=== PATIENT | male | born 1990 | race Caucasian/White ===

== ENCOUNTER 2023-09-15 14:42 | Emergency (ER) | payer OTHER ==
[2023-09-15 15:29] VITALS: BP 157/95; O2SAT 100
--- NOTE | 2023-09-15 16:13 | XRAY Report ---
PROCEDURE: Shoulder 3 View LT INDICATIONS: injury TECHNIQUE: 3 views of the shoulder were acquired. COMPARISON: None. FINDINGS: Bones: Mid clavicle shaft fracture, with 1.6 cm superior subluxation of the proximal fragment. Soft tissues: No suspicious soft tissue calcifications. The visualized lungs are within normal limi ts. IMPRESSION: Displaced, comminuted mid clavicle shaft fracture. Reviewed by: Panda Lowe MD on 09/15/2023 4:12 PM PST Approved by: Panda Lowe MD on 09/15/2023 4:12 PM PST Station ID: [id number]
--- NOTE | 2023-09-15 16:21 | ED Physician Documentation ---
History of Present Illness - Stated complaint Stated Complaint: COLLAR BONE INJ - Chief complaint Chief Complaint: Trauma Ext - History obtained from History obtained from: Patient - History of Present Illness Timing: Yesterday Pain level max: 7 Pain level now: 7 - Additonal information Additional information: 32-year-old male, [employer] was in [place] yesterday, snowboarding when he fell and sustained a clavicle fracture. He was seen in an emergency department in [place], told he may have a coracoid process fracture on his scapula and that he should have a CT scan or MRI when he returned back to the [facility] and should be referred to orthopedics. Patient was prescribed Percocet for pain. No head, neck, back pain. No rib pain. No difficulty breathing. No cough. No congestion. No head injury. No loss of consciousness. No numbness or tingling in the left arm. Review of Systems Constitutional: denies: Fever, Chills Respiratory: denies: Cough GI: denies: Vomiting, Diarrhea Skin: denies: Rash Musculoskeletal: denies: Neck pain, Back pain Neurologic: denies: Headache PD PAST MEDICAL HISTORY - Past Medical History Past Medical History: No Cardiovascular: None Respiratory: None Neuro: None Endocrine/Autoimmune: None GI: None : None HEENT: None Psych: None Musculoskeletal: None Derm: None - Past Surgical History Past Surgical History: Yes - Present Medications Home Medications: Ambulatory Orders Medication Instructions Recorded Confirmed Oxycodone HCl/Acetaminophen 1 - 2 each PO Q6H PRN #14 tablet 09/15/23 [Percocet 5-325 mg Tablet] MDD 6 tabs - Allergies Allergies/Adverse Reactions: Allergies Allergy/AdvReac Type Severity Reaction Status Date / Time No Known Drug Allergies Allergy Verified 09/15/23 15:18 - Social History Does the pt smoke?: No Smoking Status: Never smoker Does the pt drink ETOH?: Yes Does the pt have substance abuse?: No - Immunizations Immunizations are current?: Yes PD ED PE NORMAL - Vitals Vital signs reviewed: Yes - General General: Alert and oriented X 3 - HEENT HEENT: Atraumatic, Moist mucous membranes - Neck Neck: Supple, no meningeal sign, No bony TTP - Back Back: No spinal TTP - Derm Derm: Warm and dry - Extremities Extremities: Other (Tender to palpation over the left clavicle. No skin tenting. No deformity. No significant tenderness over the scapula. No crepitus. Limited range of motion of the shoulder secondary to pain. Neurovascular intact including the axillary nerve. Otherwise normal examination of the left shoulder.) - Neuro Neuro: Alert and oriented X 3 - Psych Psych: Normal mood, Normal affect Results - Vitals Vitals: Vital Signs - 24 hr 09/15/23 15:20 Temperature 36.9 C Heart Rate 77 Respiratory 18 Rate Blood Pressure 157/95 H O2 Saturation 100 Oxygen O2 Source Room air - Rads (name of study) Left shoulder x-ray Relevant Findings:: Final report received, See rad report PD Medical Decision Making - ED course Complexity details: reviewed results, re-evaluated patient, considered differential, d/w patient ED course: 32-year-old male with a left midclavicular fracture. Possible coracoid process fracture of the scapula, I reviewed the images with radiology. The coracoid process if there is a fracture is not displaced, ligaments and joint spaces measure normally no evidence of floating shoulder. Therefore they do not recommend a CT scan. Orthopedics is unavailable for consultation today as we do not have orthopedics on-call today. We will continue the sling and pain medication. Will have him follow-up with orthopedics for further care. Neurovascular intact. No other acute injuries. No evidence of rib fractures, pneumothorax, hemothorax. Patient counseled regarding signs and symptoms for which I believe and urgent re-evaluation would be necessary. Patient with good understanding of and agreement to plan and is comfortable going home at this time This document was made in part using voice recognition software. While efforts are made to proofread this document, sound alike and grammatical errors may occur. Departure - Departure Disposition: 01 Home, Self Care Clinical Impression: Clavicle fracture Qualifiers: Encounter type: initial encounter Clavicle location: shaft Fracture type: closed Fracture alignment: displaced Laterality: left Qualified Code(s): S42.022A - Displaced fracture of shaft of left clavicle, initial encounter for closed fracture Condition: Good Instructions: ED Fx Clavicle Follow-Up: your,doctor in 1 week [Other] Orthopedic Care [Provider Group] Prescriptions: Oxycodone HCl/Acetaminophen [Percocet 5-325 mg Tablet] 1 - 2 each PO Q6H PRN #14 tablet MDD 6 tabs PRN Reason: pain Comments: Your prescription was sent to the [facility] pharmacy. Please follow-up with orthopedics for further care. You have a displaced, comminuted mid clavicular shaft fracture. There could also be a small fracture of the coracoid process of your scapula. There does not appear to be widening of your shoulder joint. These usually do not require surgery and usually heal well with a sling. I am prescribing a short course of narcotic pain medication for you. These are potentially dangerous and addictive medications that should be used carefully. These medications may constipate you. Take an [id number] stool softener (docusate) twice daily with plenty of water while taking these medications. If you go 24 hours without a bowel movement, take [id number] miralax, per package instructions. Do not drink or drive while taking these medications. If you received narcotic or sedating medications while in the emergency department, do not drive for 24 hours. Store this medication in a safe, secure place and out of reach of children. It is a violation of federal law to give or sell this medication to another person or to use in a manner other than prescribed. The ED will not refill narcotic prescriptions, including prescriptions lost or stolen. To dispose of unwanted medications: 1. [facility] at [address] in [place] has a medication drop box. They accept prescription medications (in pill form) Thursday through Thursday 9:00 a.m. to 5:00 p.m. 2. [facility] accepts prescription medications (in pill form only) for disposal year round. Call for more information. 3. Contact the [facility] for the next [facility] sponsored prescription drug collection event. , [phone], or [phone]; Forms: PCP List Discharge Date/Time: 09/15/23 16:29
== END 2023-09-15 16:29 | disposition home or self-care (01) ==
LOC: ED 14:42
DX: S42.022A Displaced fracture of shaft of left clavicle, initial encounter for closed fracture (principal); V00.311A Fall from snowboard, initial encounter; Y93.23 Activity, snow (alpine) (downhill) skiing, snowboarding, sledding, tobogganing and snow tubing
CPT/HCPCS: 99283; 99284